=== PATIENT | male | born 1960 | race Caucasian/White ===

== ENCOUNTER 2021-02-03 09:59 | Outpatient (CLI) | payer SELFPAY ==
--- NOTE | 2021-02-03 10:23 | XR_ITS ---
WS: [id number] FOREARM LEFT TECHNIQUE: 2 views of the left forearm CLINICAL INFORMATION: DOG BITE COMPARISON: None. FINDINGS: Soft tissue edema distal forearm. No radiopaque foreign objects. Radius and ulna are normal. No acute fractures. XR/XR forearm LT 2V [id number] IMPRESSION: Soft tissue edema distal forearm. No acute fractures.
== END 2021-02-03 10:00 | disposition home or self-care (01) ==
PROVIDERS: Visit Provider Registered Nurse
DX: L02.414 Cutaneous abscess of left upper limb (principal); W54.0XXA Bitten by dog, initial encounter; R60.0 Localized edema
CPT/HCPCS: 73090

== ENCOUNTER 2024-04-16 16:07 | Outpatient (CLI) | payer SELFPAY ==
[2024-04-16 19:16] LABS: Prostate Specific Antigen Scr 2.99 ng/mL (0-4)
== END 2024-04-16 16:08 | disposition home or self-care (01) ==
PROVIDERS: PCP Electrodiagnostic Medicine; Visit Provider Dermatology
DX: Z13.9 Encounter for screening, unspecified (principal)

== ENCOUNTER 2024-11-05 09:35 | Outpatient (CLI) | payer BC, SELFPAY ==
[2024-11-05 10:15] LABS: Hematocrit 45.7 % (37-53); Hemoglobin 15.30 g/dL (11.27-16.99); Mean Corpuscular HGB Conc 33.5 g/dL (30-55); Mean Corpuscular Hemoglobin 30.2 pg (27-33); Mean Corpuscular Volume 90.1 fl (82-101); Nucleated Red Blood Cells % 0 %; Platelet Count 216 10^3/cmm (157-399); Red Blood Count 5.07 10^6/uL (3.85-5.65); White Blood Count 6.09 10^3/uL (3.29-11.43)
[2024-11-05 10:40] LABS: Estmated Average Glucose 108; Hemoglobin A1C 5.4 % (4.0-6.0)
[2024-11-05 10:48] LABS: Alanine Aminotransferase 21 U/L (0-41); Albumin Level 4.2 g/dL (3.5-5.2); Alkaline Phosphatase 167 U/L (40-130); Anion Gap 15.2 (5-19); Aspartate Amino Transferase 21 U/L (0-40); Blood Urea Nitrogen 12 mg/dL (8-23); Calcium 9.5 mg/dL (8.5-10.5); Carbon Dioxide 25 mmol/L (22-29); Chloride 106 mmol/L (98-107); Cholesterol 135 mg/dL (0-200); Globulin 3.3 g/dL (1.3-4.6); Glucose 89 mg/dL (65-115); HDL Cholesterol 34 mg/dL (60-100); Osmolality Calculated 293 mOsm/kg (285-295); Potassium 4.2 mmol/L (3.5-5.1); Prostate Specific Antigen 3.430 ng/mL (0-4); Sodium 142 mmol/L (136-145); Thyroid Stimulating Hormone 1.64 uIU/mL (0.27-4.20); Total Protein 7.5 g/dL (6.6-8.7); Triglycerides 248 mg/dL (0-150)
== END 2024-11-05 09:36 | disposition home or self-care (01) ==
PROVIDERS: PCP Electrodiagnostic Medicine; Visit Provider Electrodiagnostic Medicine
DX: I10 Essential (primary) hypertension (principal); E03.9 Hypothyroidism, unspecified; R73.9 Hyperglycemia, unspecified; Z12.5 Encounter for screening for malignant neoplasm of prostate
CPT/HCPCS: 36415; 80053; 80061; 83036; 84153; 84443; 85025